=== PATIENT | male | born 1980 | race Caucasian/White ===

== ENCOUNTER 2017-07-02 01:31 | Emergency (ER) | payer OTHER ==
[~2017-07-02] VITALS: Ht 185.4 cm; Wt 79.4 kg
[~2017-07-02 01:31] MED LIST: AZIT-1 PO; QUET25TA30 PO
--- NOTE | 2017-07-02 01:52 | ER Report ---
History and Physical Time Seen By MD: 01:51 Hx. of Stated Complaint: patient states he smashed his left index finger in between a wrench and a trailer bed. HPI/ROS This is an otherwise healthy right-handed male who smashed his left index finger between a wrench and the trailer hitch of a car. Now complaining of pain to the injured digit. No other complaints Remainder of the 14 system rev: Yes Allergies: Coded Allergies: No Known Drug Allergies (Unverified , 05/23/16) Home Meds No Active Prescriptions or Reported Meds Hx Smoking: Yes Smoking Status: Current: Every Day Smoker Exposure to Second Hand Smoke?: Yes Hx Substance Use Disorder: No Hx Alcohol Use: Yes Constitutional Physical Exam General appearance: Alert no distress. Respiratory: Chest is non tender, lungs are clear to auscultation. Cardiac: Regular rate and rhythm Ex: left index finger with distal laceration. Nail bed in tact. N/V in tact. FROM. No tendon or ligamentous injury DIFFERENTIAL DIAGNOSIS: After history and physical exam differential diagnosis was considered for fracture, tendon/ligament/vascular injuries Medical Decision Making EKG/Imaging Imaging X-ray: left index finger was obtained. I viewed the images myself on the PACS system. My interpretation of the images is: distal phalynx fracture. The radiologist interpretation had no clinically significant variation from this interpretation. ED Course/Re-evaluation ED Course 36-year-old right handed male sustained a aft fracture to the left index finger earlier tonight. Tetanus up-to-date. No subungual hematoma. Small lacerations were irrigated. Wound was dressed and finger was placed in a finger splint. Decision to Disposition Date: Jul 02, 2017 Decision to Disposition Time: 03:24 Depart Departure Latest Vital Signs Impression: Primary Impression: Open fracture of tuft of distal phalanx of finger Condition: Improved Disposition: HOME OR SELF-CARE New Scripts No Active Prescriptions or Reported Meds Patient Instructions: Open Finger Fracture (Key) CHINYERE CUEVAS MD Jul 02, 2017 01:52
--- NOTE | 2017-07-02 02:26 | RADIOLOGY IMAGING REPORT ---
FACILITY: [facility] - [place] PATIENT NAME: Chris Valencia : 1980 MR: [id number] V: [id number] EXAM DATE: ORDERING PHYSICIAN: CHINYERE CUEVAS TECHNOLOGIST: Location: [facility] [place] Patient: Chris Valencia : 1980 Visit/Account:[id number] Date of Sevice: 07/02/2017 HAND COMPLETE LEFT HISTORY: crush injury Three-view examination of the left hand FINDINGS: Fracture through the distal terminal tuft of the left second finger. (See previous report from same d ay). Remainder the hands unremarkable. No additional fractures noted. Soft tissue changes overlying t he distal aspect of the index finger. Impression: 1. Transverse of the distal terminal tuft of the left index finger. Report Dictated By: Lamonte Alexander MD at 07/02/2017 2:21 AM Report E-Signed By: Lamonte Alexander MD at 07/02/2017 2:22 AM WSN:[id number]
--- NOTE | 2017-07-02 02:26 | RADIOLOGY IMAGING REPORT ---
FACILITY: [facility] - [place] PATIENT NAME: Chris Valencia : 1980 MR: [id number] V: [id number] EXAM DATE: ORDERING PHYSICIAN: CHINYERE CUEVAS TECHNOLOGIST: [place] [facility] [place]: Chris Valencia : 1980 Visit/Account:[id number] Date of Sevice: 07/02/2017 FINGER LEFT 2ND DIGIT HISTORY: crush injury Three-view examination of the left index finger FINDINGS: Transverse fracture through the distal terminal tuft of the second finger. No significant offset or a ngulation to the tuft fracture. Soft tissue contusion changes with overlying bandage material. IMPRESSION: Transverse fracture without any significant displacement or angulation of the distal terminal tuft of the left index finger. Report Dictated By: Lamonte Alexander MD at 07/02/2017 2:19 AM Report E-Signed By: Lamonte Alexander MD at 07/02/2017 2:21 AM WSN:[id number]
[2017-07-02 03:15] VITALS: BP 116/76
== END 2017-07-02 03:33 | disposition home or self-care (01) ==
LOC: ER 01:51
DX: S62.661A Nondisplaced fracture of distal phalanx of left index finger, initial encounter for closed fracture (principal); W23.0XXA Caught, crushed, jammed, or pinched between moving objects, initial encounter
CPT/HCPCS: 99283

== ENCOUNTER 2017-10-24 13:21 | Emergency (ER) | payer OTHER ==
--- NOTE | 2017-10-24 13:33 | ER Report ---
History and Physical Time Seen By MD: 13:33 Hx. of Stated Complaint: L SIDE RED BUMP ON/INSIDE BUTTOCK AND INSIDE L GROIN HPI/ROS CHIEF COMPLAINT: Cyst on buttock, lump in left groin HISTORY OF PRESENT ILLNESS: 36-year-old male patient presents to emergency room with complaint of a cyst on his left buttock, patient states this been going on for the last 2 days. Patient states he does have discomfort with this. He states that he also noticed this morning that had a lump in his left groin. Patient denies having any fevers, chills, nausea, vomiting or diarrhea. Patient states that he was treated for this last year at the urgent care, and got better , however he wanted to be evaluated so he did not have a recurrence of this again. Patient denies taking any medication for this. Allergies: Coded Allergies: No Known Drug Allergies (Unverified , 05/23/16) Home Meds Active Scripts Hydrocodone Bit/Acetaminophen (HYDROCODON-ACETAMINOPHEN 5-325) 1 Each Tablet, 1 EACH PO Q4-6H Y for PAIN, #8 TAB Prov:KIRAN BROOKSP 10/24/17 Cephalexin 500 Mg Tab (KEFLEX 500 MG TAB) 500 Mg Tablet, 500 MG PO Q6H, #40 TAB Prov:KIRAN BROOKS 10/24/17 Past Medical/Surgical History Patient has a past medical history of pilonidal cyst, visual alcohol use. Patient has no pertinent surgical history. Patient has a family medical history of CAD. Reviewed Nurses Notes: Yes Hx Smoking: Yes Smoking Status: Current: Every Day Smoker Exposure to Second Hand Smoke?: Yes Hx Substance Use Disorder: No Hx Alcohol Use: Yes Constitutional Vital Sign - Last 24 Hours 10/24/17 10/24/17 13:28 14:12 Temp 99.4 99.1 Pulse 76 73 Resp 14 14 B/P (MAP) 127/72 101/65 (77) Pulse Ox 93 92 O2 Delivery Room Air Room Air Physical Exam General appearance: Alert no distress. Respiratory: Chest is non tender, lungs are clear to auscultation. Cardiac: Regular rate and rhythm. Skin: Patient has erythema on the left side of the buttock, tender to the touch , is not warm to touch. Patient also has what appears to be a enlarged inguinal lymph node. DIFFERENTIAL DIAGNOSIS: After history and physical exam differential diagnosis was considered for pilonidal cyst with reactive lymph node, cellulitis, abscess. Medical Decision Making ED Course/Re-evaluation ED Course Patient was admitted to exam room, history and physical were obtained. Differential diagnoses were considered. On examination patient has erythema on the left buttock, it is in the gluteal fold. It is tender to touch. Patient also has what appears to be enlarged lymph node in the left inguinal area. With patient consent the area was cleaned, anesthetized using 1% lidocaine and 0.5% Marcaine and a 1 cm incision was made. The incision was made right in the middle of the area of erythema. There is no purulent drainage. I didn't manage to get a significant amount of bleeding. The area was then dressed with 4 x [address]. I discussed my findings with the patient and his spouse. I believe that this is an area of cellulitis that has not developed into an abscess. We will go ahead and treat him with antibiotics, Keflex 4 times a day, as well as a limited supply of pain medication. I expect that he's in have improvement in the next 72 hours. If there's no improvement I would like him to follow-up with Dr. Pagan, general surgeon for evaluation and surgical treatment. I discussed this with the patient and his spouse live verbalized understanding and agreement with plan. Decision to Disposition Date: Oct 24, 2017 Decision to Disposition Time: 13:58 Depart Departure Latest Vital Signs Vital Signs Date Time Temp Pulse Resp B/P (MAP) Pulse Ox O2 Delivery O2 Flow Rate FiO2 10/24/17 14:12 99.1 73 14 101/65 (77) 92 Room Air Impression: Primary Impression: Cellulitis and abscess of buttock Condition: Improved Disposition: HOME OR SELF-CARE Referrals: MARE PAGAN MD New Scripts Hydrocodone Bit/Acetaminophen (HYDROCODON-ACETAMINOPHEN 5-325) 1 Each Tablet 1 EACH PO Q4-6H Y for PAIN, #8 TAB Prov: KIRAN BROOKS 10/24/17 Cephalexin 500 Mg Tab (KEFLEX 500 MG TAB) 500 Mg Tablet 500 MG PO Q6H, #40 TAB Prov: KIRAN BROOKS 10/24/17 Patient Instructions: Cellulitis (ED) Additional Instructions: Limit activity by pain. Get plenty of rest. Take the antibiotics as directed. Take Ibuprofen as needed for pain. Follow up with Dr. Pagan, general surgeon, if pain persists. You may return to the ER if condition worsens. KIRAN BROOKS [facility] Oct 24, 2017 13:33
[2017-10-24] MEDS ORDERED: CEPH500T7 PO (13:55)
[2017-10-24] MEDS ORDERED: HYDR-385 PO (13:57)
[2017-10-24 14:12] VITALS: BP 101/65
== END 2017-10-24 14:14 | disposition home or self-care (01) ==
LOC: ER 13:35
DX: L03.317 Cellulitis of buttock (principal)
CPT/HCPCS: 99282

== ENCOUNTER 2017-10-26 14:41 | Emergency (ER) | payer OTHER ==
[~2017-10-26 14:41] MED LIST changes: +CEPH500T7 PO; +HYDR-385 PO
--- NOTE | 2017-10-26 14:54 | ER Report ---
History and Physical Time Seen By MD: 14:53 Hx. of Stated Complaint: Patient seen on Thursday for lumb on buttock. Worse today. Just filled RX today and has only had one dose of antibiotic and pain med HPI/ROS CHIEF COMPLAINT: Cellulitis HISTORY OF PRESENT ILLNESS: This is a 37-year-old male who presents to the emergency department for worsening cellulitis. Patient was in the emergency department 2 days ago, they did try to I&D the left medial buttock , no abscess was drained. Patient states he did not get his prescription filled until today due to money. Patient states that the area is significantly worse, more painful and there is purulent drainage coming from the area that was I&D. There is significant warmth, erythema and induration to the area. She denies aches, chills, nausea, vomiting, diarrhea. REVIEW OF SYSTEMS: Respiratory: No cough, no dyspnea. Cardiovascular: No chest pain, no palpitations. Gastrointestinal: No vomiting, no abdominal pain. Musculoskeletal: No back pain. Integument: As above. Allergies: Coded Allergies: No Known Drug Allergies (Unverified , 10/26/17) Home Meds Active Scripts Sulfamethoxazole/Trimet 800-160 Mg Tab (BACTRIM DS TABLET) 1 Each Tablet, 1 TAB PO Q12H, #20 TAB Prov:ARIK BARRETT [facility] 10/26/17 Hydrocodone Bit/Acetaminophen (HYDROCODON-ACETAMINOPHEN 5-325) 1 Each Tablet, 1 EACH PO Q4-6H Y for PAIN, #8 TAB Prov:KIRAN BROOKS [facility] 10/24/17 Cephalexin 500 Mg Tab (KEFLEX 500 MG TAB) 500 Mg Tablet, 500 MG PO Q6H, #40 TAB Prov:KIRAN BROOKS [facility] 10/24/17 Past Medical/Surgical History Patient has a past medical and surgical history of multiple abscesses. Reviewed Nurses Notes: Yes Hx Smoking: Yes Smoking Status: Current: Every Day Smoker Exposure to Second Hand Smoke?: Yes Hx Substance Use Disorder: No Hx Alcohol Use: Yes (OCC) Constitutional Vital Sign - Last 24 Hours 10/26/17 10/26/17 14:48 15:44 Temp 98.7 Pulse 78 71 Resp 16 16 B/P (MAP) 121/74 111/66 (81) Pulse Ox 91 93 O2 Delivery Room Air Room Air Physical Exam General Appearance: The patient is alert, has no immediate need for airway protection and no current signs of toxicity. Eyes: Pupils equal and round no injection. Respiratory: Chest is non tender, lungs are clear to auscultation. Cardiac: regular rate and rhythm, no murmurs, clicks or rubs. Gastrointestinal: Abdomen is soft and non tender, no masses, bowel sounds normal. Musculoskeletal: Neck: Neck is supple and non tender. Extremities have full range of motion and are non tender. Skin: There is an area of erythema, induration and swelling with some purulent drainage noted from the I&D site 2 days prior, to the left medial buttock. No other signs of cellulitis. DIFFERENTIAL DIAGNOSIS: After history and physical exam differential diagnosis was considered for cellulitis and abscess. Medical Decision Making Data Points Microbiology Microbiology Date/Time Source Procedure Growth Status 10/26/17 15:30 Abscess Wound Culture - Preliminary NO GROWTH AFTER 1 DAY, REINCUBATED Resulted ED Course/Re-evaluation ED Course The patient was admitted to room. A history and physical were obtained. Differential diagnoses were considered. An I&D of the abscessed area was performed as noted below, with approximately 15-20 mils of purulent drainage. A specimen was collected and sent to the lab for culture. A small piece of packing was placed and the area was loosely covered. The patient was also started on Bactrim. I did tell the patient that he must get this prescription filled as well as start taking the other prescription medication. The patient states that he has enough money today to get the Bactrim filled as well. He does not have a primary care provider therefore he will return to the emergency department 24-48 hours for reevaluation, sooner if necessary. Patient had no questions or concerns at this time and was discharged home. The patient was also given a note for work. Procedure: Abscess drainage. The patient's abscess was located on the medial side of the left buttock. I obtained verbal consent from the patient to drain the abscess who was informed about the possibility of bleeding and pain. The abscess was anesthetized with 1 % lidocaine with epinephrine, approximately 5 mL's injected. The abscess was incised with a scalpel and a large amount of purulent drainage was expressed. I placed some packing. The patient tolerated the procedure well. The procedure was performed by myself. Decision to Disposition Date: Oct 26, 2017 Decision to Disposition Time: 15:47 Depart Departure Latest Vital Signs Vital Signs Date Time Temp Pulse Resp B/P (MAP) Pulse Ox O2 Delivery O2 Flow Rate FiO2 10/26/17 15:44 71 16 111/66 (81) 93 Room Air 10/26/17 14:48 98.7 Impression: Primary Impression: Cellulitis and abscess of buttock Condition: Improved Disposition: HOME OR SELF-CARE New Scripts Sulfamethoxazole/Trimet 800-160 Mg Tab (BACTRIM DS TABLET) 1 Each Tablet 1 TAB PO Q12H, #20 TAB Prov: ARIK BARRETT 10/26/17 Patient Instructions: Abscess (ED) Additional Instructions: Drink plenty of fluids. Get plenty of rest. Take the keflex and bactrim as directed. Return to the ED in 24-48 hours for reevaluation of the wound and possibly repacking. Return sooner for any other concerns. Change the dressing as needed. Leave the wound packing in place. ARIK BARRETT-EVE Oct 26, 2017 14:54
[2017-10-26] MEDS ORDERED: SULF-198 PO (15:39)
[2017-10-26 15:44] VITALS: BP 111/66
== END 2017-10-26 16:11 | disposition home or self-care (01) ==
LOC: ER 14:42
DX: L03.317 Cellulitis of buttock (principal)
CPT/HCPCS: 87070; 99282

== ENCOUNTER 2017-10-27 17:04 | Emergency (ER) | payer OTHER ==
[~2017-10-27 17:04] MED LIST changes: +SULF-198 PO
[2017-10-27 17:12] VITALS: BP 128/63
--- NOTE | 2017-10-27 17:29 | ER Report ---
History and Physical Time Seen By MD: 17:28 Hx. of Stated Complaint: HERE FOR WOUND RE-EVAL AND PACKING CHANGE. HPI/ROS CHIEF COMPLAINT: Wound care HISTORY OF PRESENT ILLNESS: This is a 37-year-old male who presents to the emergency department for wound care after an I&D yesterday. The patient had an I &D of an abscess on the left medial buttock near the anus. Patient states he is feeling much better today, he did get medications filled and is taking them regularly now. Patient states there is still drainage from the wound, he thought that the wound packing needed to be removed and reevaluated. Patient denies aches, chills, nausea, vomiting, diarrhea. REVIEW OF SYSTEMS: Respiratory: No cough, no dyspnea. Cardiovascular: No chest pain, no palpitations. Gastrointestinal: No vomiting, no abdominal pain. Musculoskeletal: No back pain. Integumentary: As above. Allergies: Coded Allergies: No Known Drug Allergies (Unverified , 10/26/17) Home Meds Active Scripts Sulfamethoxazole/Trimet 800-160 Mg Tab (BACTRIM DS TABLET) 1 Each Tablet, 1 TAB PO Q12H, #20 TAB Prov:ARIK BARRETT [facility] 10/26/17 Hydrocodone Bit/Acetaminophen (HYDROCODON-ACETAMINOPHEN 5-325) 1 Each Tablet, 1 EACH PO Q4-6H Y for PAIN, #8 TAB Prov:KIRAN BROOKS [facility] 10/24/17 Cephalexin 500 Mg Tab (KEFLEX 500 MG TAB) 500 Mg Tablet, 500 MG PO Q6H, #40 TAB Prov:KIRAN BROOKS [facility] 10/24/17 Past Medical/Surgical History Patient has a past medical and surgical history of multiple abscesses. Reviewed Nurses Notes: Yes Hx Smoking: Yes Smoking Status: Current: Every Day Smoker Exposure to Second Hand Smoke?: Yes Hx Substance Use Disorder: No Hx Alcohol Use: Yes (OCC) Constitutional Vital Sign - Last 24 Hours 10/27/17 17:12 Temp 98.4 Pulse 68 Resp 18 B/P (MAP) 128/63 Pulse Ox 94 O2 Delivery Room Air Physical Exam General Appearance: The patient is alert, has no immediate need for airway protection and no current signs of toxicity. Eyes: Pupils equal and round no injection. Respiratory: Chest is non tender, lungs are clear to auscultation. Cardiac: regular rate and rhythm. Gastrointestinal: Abdomen is soft and non tender, no masses, bowel sounds normal. Musculoskeletal: Neck: Neck is supple and non tender. Extremities have full range of motion and are non tender. Skin: Cellulitis and abscess to the left medial buttock is improving, erythema is improving induration has improved. Small amount of drainage when the packing was removed. DIFFERENTIAL DIAGNOSIS: After history and physical exam differential diagnosis was considered for abscess. Medical Decision Making ED Course/Re-evaluation ED Course The patient was admitted to room. A history and physical were obtained. The patient's packing was removed a small amount of purulent drainage was expressed from the wound. A small amount of packing was placed again to encourage draining. The area still has some erythema with some induration however significantly improved from yesterday. The patient states he is feeling much better. The patient will follow-up in 24-48 hours for reevaluation, and at that time unlikely to have more packing placed. The patient will continue taking the antibiotics. The patient was in agreement with this plan of care and discharged home. The patient's abscess is improving the small wick of wound packing was removed I was able to express a small amount of. One drainage the wound was repacked with a small amount of packing. Patient tolerated well. Decision to Disposition Date: October 27, 2017 Decision to Disposition Time: 18:05 Depart Departure Latest Vital Signs Vital Signs Date Time Temp Pulse Resp B/P (MAP) Pulse Ox O2 Delivery O2 Flow Rate FiO2 10/27/17 17:12 98.4 68 18 128/63 94 Room Air Impression: Primary Impression: Cellulitis and abscess of buttock Condition: Improved Disposition: HOME OR SELF-CARE Patient Instructions: Abscess (ED) Additional Instructions: Continue to drink plenty of fluids. Get plenty of rest. Continue taking the antibiotics as prescribed. Return to the ED in 24-48 hours for reevaluation. It is unlikely you will need packing placed again when you follow up in 24-48 hours. Return to the ED for any other concerns or worsening symptoms. ARIK BARRETT [employer] October 27, 2017 17:29
== END 2017-10-27 18:17 | disposition home or self-care (01) ==
LOC: ER 17:16
DX: L03.317 Cellulitis of buttock (principal)
CPT/HCPCS: 99282

== ENCOUNTER 2017-10-29 12:57 | Emergency (ER) | payer OTHER ==
--- NOTE | 2017-10-29 13:02 | ER Report ---
History and Physical Time Seen By MD: 13:00 HPI/ROS CHIEF COMPLAINT: Abscess recheck HISTORY OF PRESENT ILLNESS the patient is a 37-year-old male who initially presented to the emergency department on October 24 for evaluation of possible of buttock cellulitis versus abscess. Incision and drainage was attempted that time no fluid was obtained. Patient was sent home with prescriptions for pain medicines and antibiotics but he did not fill these. He was sexually seen on the for worsening symptoms and at this time had an incision and drainage performed. He was followed up on October 27 and states that he did improve with his symptoms and did get his antibiotics filled and is taking them as prescribed. He returns to department today for reevaluation. REVIEW OF SYSTEMS: Constitutional: Denies fever Skin: Reports improvement in symptoms including resolution of almost all of the erythema Allergies: Coded Allergies: No Known Drug Allergies (Unverified , 10/29/17) Home Meds Active Scripts Sulfamethoxazole/Trimet 800-160 Mg Tab (BACTRIM DS TABLET) 1 Each Tablet, 1 TAB PO Q12H, #20 TAB Prov:ARIK BARRETT [facility] 10/26/17 Hydrocodone Bit/Acetaminophen (HYDROCODON-ACETAMINOPHEN 5-325) 1 Each Tablet, 1 EACH PO Q4-6H Y for PAIN, #8 TAB Prov:KIRAN BROOKS [facility] 10/24/17 Cephalexin 500 Mg Tab (KEFLEX 500 MG TAB) 500 Mg Tablet, 500 MG PO Q6H, #40 TAB Prov:KIRAN BROOKS [facility] 10/24/17 Past Medical/Surgical History Noncontributory Hx Smoking: Yes Smoking Status: Current: Every Day Smoker Exposure to Second Hand Smoke?: Yes Hx Substance Use Disorder: No Hx Alcohol Use: Yes (OCC) Physical Exam General appearance: Alert no distress. Respiratory: Chest is non tender, lungs are clear to auscultation. Cardiac: Regular rate and rhythm [ ] Skin: Patient with improvement of abscess there is no longer any erythema the dressing appears dry and intact. Plan will be removal of packing and discharge home. Medical Decision Making ED Course/Re-evaluation ED Course 10/29/2017 1:11:12 pm patient with improvement of gluteal abscess. Packing was removed. Patient instructed to continue antibiotics. Discharge home Decision to Disposition Date: October 29, 2017 Decision to Disposition Time: 13:12 Depart Departure Impression: Primary Impression: Wound check, abscess Condition: Improved Disposition: HOME OR SELF-CARE Patient Instructions: Acute Wound Care (GEN) Additional Instructions: Perform sitz baths twice per day for the next 48-72 hours. Continue your antibiotics as directed until completed. Return to the emergency department if your symptoms worsen at any time or persist greater than [address] MD October 29, 2017 13:02
[2017-10-29 13:03] VITALS: BP 114/77
== END 2017-10-29 13:18 | disposition home or self-care (01) ==
LOC: ER 13:04
DX: L02.31 Cutaneous abscess of buttock (principal)
CPT/HCPCS: 99282